=== PATIENT | male | born 1970 | race Caucasian/White ===

== ENCOUNTER 2016-02-16 22:42 | Emergency (ER) | payer MEDICAID, OTHER ==
[~2016-02-16] VITALS: Ht 172.7 cm; Wt 75.5 kg
[~2016-02-16 22:42] MED LIST: ASP81 PO; FIORICET PO; GEMF600T PO; LANT3I SC; NOVO3I SC
[2016-02-16 22:45] VITALS: Ht 172.7 cm; Wt 75.5 kg
[2016-02-17] MEDS ORDERED: BACTDS PO (00:59)
[2016-02-17] MEDS ORDERED: CEPH-443 PO (00:59)
[2016-02-17] MEDS ORDERED: DIPHTH/TET/ACEL PERTUSS (ADULT) 0.5 ML VIAL IM* ONE (01:00)
--- NOTE | 2016-02-17 01:17 | ERD ---
ER Documentation Chief Complaint Date/Time DATE: 02/17/16 TIME: 01:14 Chief Complaint left index finger laceration HPI Patient is a 45-year-old male who presents with superficial laceration to the left index finger that he sustained today with a knife. He has mild to moderate pain and also admits to mild numbness and tingling. He states it initially bled a lot but then he applied pressure to it and there is no longer bleeding. He denies any loss of range of motion. Denies possibility of retained foreign body. He is unsure of his last tetanus vaccination. ROS All systems reviewed and are negative except as per history of present illness. Medications Home Meds Active Scripts Cephalexin* (Keflex*) 500 Mg Capsule, 500 MG PO QID for 7 Days, CAP Prov:ZARIA FARR PA-C 02/17/16 Sulfamethoxazole-Trimethoprim* (Bactrim* DS) 800-160 Mg Tab, 1 TAB PO BID for 7 Days, TAB Prov:ZARIA FARR PA-C 02/17/16 Insulin Aspart* (Novolog Insulin Pen*) 100 Unit/Ml Soln, 0 UNIT SC WITH MEALS BEDTIME for 30 Days Prov:ALISE HUTCHINS 06/22/15 Insulin Glargine* (Lantus*) 100 Unit/Ml Soln, 22 UNIT SC HS for 30 Days Prov:ALISE HUTCHINS 06/22/15 Gemfibrozil* (Lopid*) 600 Mg Tab, 600 MG PO BID for 30 Days, TAB Prov:ALISE HUTCHINS 06/22/15 Acetamin/Butalbital/Caffeine* (Fioricet*) 1 Tab Tab, 2 TAB PO Q4H Y for PAIN, # 20 TAB Prov:ALISE HUTCHINS 06/22/15 Aspirin (Aspirin) 81 Mg Chew, 81 MG PO DAILY for 30 Days, TAB Prov:ALISE HUTCHINS 06/22/15 Allergies Allergies: Coded Allergies: No Known Allergy (Unverified , 06/20/15) PMhx/Soc History of Surgery: No Anesthesia Reaction: No Hx Neurological Disorder: No Hx Respiratory Disorders: No Hx Cardiac Disorders: No Hx Psychiatric Problems: No Hx Miscellaneous Medical Probl: No Hx Alcohol Use: No Hx Substance Use: No Hx Tobacco Use: No Smoking Status: Never smoker FmHx Family History: diabetes Physical Exam Vitals Vital Signs Date Time Temp Pulse Resp B/P Pulse Ox O2 Delivery O2 Flow Rate FiO2 02/16/16 22:45 98.9 90 20 144/92 100 Physical Exam General: well developed, well nourished, alert, nontoxic, no distress Head: normocephalic, atraumatic Respiratory: Clear to auscaultation bilaterally, speaks in full sentences, no use of accesory muscles or labored breathing, no rales, ronchi, or wheezing Cardiovascular: RRR, No murmurs Extremities: moving all extremities normally, normal gait, no edema Skin: Left index finger between the DIP and the PIP joint on the pad surface there is a very superficial less than 1 cm non-gaping laceration, no active bleeding, full range of motion against resistance at each interphalangeal joint , sensation to light touch intact throughout, capillary refill less than 2 seconds, no bony abnormalities. Results 24 hrs Current Medications Medications (Trade) Dose Ordered Sig/Kieran Route PRN Reason Start Time Stop Time Status Last Admin Dose Admin Diphtheria/ Tetanus/Acell Pertussis (Adacel) 0.5 ml ONCE ONCE IM* 02/17/16 01:00 02/17/16 01:01 DC Procedures/MDM 45-year-old male presents very small superficial laceration to his finger. He is neurovascularly intact. He was given a tetanus vaccination. There is no indication for suturing will repair at this time however laceration was irrigated with copious amounts of normal saline and was appropriately dressed and bandaged. He was discharged with Bactrim and Keflex. Recommended this patient follow up with her primary care doctor within 48 hours or return to the emergency room for any worsening of symptoms. However this time I do believe there is suitable for outpatient management. I answered all their questions and they agreed with the plan and were discharged home. Departure Diagnosis: Primary Impression: Finger laceration Condition: Stable Patient Instructions: Laceration, All Additional Instructions: Llame al doctor RADHA y oscar dahiana SO PARA DENTRO DE 1-2 GRAVES.Dgale a la secretaria que nosotros le instruimos hacer esta so.Avise o llame si charles condicin se empeora antes de la so. Regresa aqui si peor o no mejor. ZARIA FARR PA-C Feb 17, 2016 01:17
[2016-02-17 01:44] VITALS: BP 140/88; PULSE 70; RESP 18; TEMP 98.3
== END 2016-02-17 01:50 | disposition home or self-care (01) ==
LOC: FTE 22:42
DX: S61.211A Laceration without foreign body of left index finger without damage to nail, initial encounter (principal); W26.0XXA Contact with knife, initial encounter; Y92.9 Unspecified place or not applicable; Z79.4 Long term (current) use of insulin; Z79.82 Long term (current) use of aspirin; Z23 Encounter for immunization
CPT/HCPCS: 90471; 90715; Z7502

== ENCOUNTER 2016-07-23 08:32 | Emergency (ER) | payer OTHER ==
[~2016-07-23] VITALS: Ht 170.2 cm; Wt 81.0 kg
[~2016-07-23 08:32] MED LIST changes: -ASP81 PO; +ASPI81TA3 PO; +BACTDS PO; +CEPH-443 PO
[2016-07-23 08:42] VITALS: Ht 170.2 cm; Wt 81.0 kg
[2016-07-23] MEDS ORDERED: DIPHTH/TET/ACEL PERTUSS (ADULT) 0.5 ML VIAL IM* ONE (09:00)
[2016-07-23] MEDS ORDERED: CEPHALEXIN 500 MG CAP PO STA (09:18)
[2016-07-23] MEDS ORDERED: TRIMETHOPRIM/SULFAMETHOX (DS) TAB PO STA (09:18)
[2016-07-23] MEDS ORDERED: CEPH-443 PO (09:27)
[2016-07-23] MEDS ORDERED: SULF1TAB31 PO (09:27)
--- NOTE | 2016-07-23 10:27 | ERD ---
ER Documentation Chief Complaint Date/Time DATE: 07/23/16 TIME: 10:19 Chief Complaint pt bib self with c/o left index finger lac last night at 1700 HPI This is a 46-year-old male presenting to the emergency department complaining of a laceration to the volar aspect of his left index finger that occurred yesterday at 4 PM from a saw injury. Patient states the pain is moderate in severity. He denies any restricted range of motion. He does not remember his last tetanus shot ROS All systems reviewed and are negative except as per history of present illness. Medications Home Meds Active Scripts Sulfamethoxazole/Trimethoprim* (Bactrim Ds* Tablet) 1 Each Tablet, 1 TAB PO BID , #14 TAB Prov:CHELLY NOVAK PA-C 07/23/16 Cephalexin* (Keflex*) 500 Mg Capsule, 500 MG PO QID for 7 Days, CAP Prov:CHELLY NOVAK PA-C 07/23/16 Cephalexin* (Keflex*) 500 Mg Capsule, 500 MG PO QID for 7 Days, CAP Prov:ZARIA FARR PA-C 02/17/16 Sulfamethoxazole-Trimethoprim* (Bactrim* DS) 800-160 Mg Tab, 1 TAB PO BID for 7 Days, TAB Prov:ZARIA FARR PA-C 02/17/16 Insulin Aspart* (Novolog Insulin Pen*) 100 Unit/Ml Soln, 0 UNIT SC WITH MEALS BEDTIME for 30 Days Prov:ALISE HUTCHINS 06/22/15 Insulin Glargine* (Lantus*) 100 Unit/Ml Soln, 22 UNIT SC HS for 30 Days Prov:ALISE HUTCHINS 06/22/15 Gemfibrozil* (Lopid*) 600 Mg Tab, 600 MG PO BID for 30 Days, TAB Prov:ALISE HUTCHINS 06/22/15 Acetamin/Butalbital/Caffeine* (Fioricet*) 1 Tab Tab, 2 TAB PO Q4H Y for PAIN, # 20 TAB Prov:ALISE HUTCHINS 06/22/15 Aspirin (Aspirin) 81 Mg Chew, 81 MG PO DAILY for 30 Days, TAB Prov:ALISE HUTCHINS 06/22/15 Allergies Allergies: Coded Allergies: No Known Allergy (Unverified , 06/20/15) PMhx/Soc Medical and Surgical Hx: pt denies Medical Hx, pt denies Surgical Hx History of Surgery: No Anesthesia Reaction: No Hx Neurological Disorder: No Hx Respiratory Disorders: No Hx Cardiac Disorders: No Hx Psychiatric Problems: No Hx Miscellaneous Medical Probl: No Hx Alcohol Use: No Hx Substance Use: No Hx Tobacco Use: No Smoking Status: Never smoker Physical Exam Vitals Vital Signs Date Time Temp Pulse Resp B/P Pulse Ox O2 Delivery O2 Flow Rate FiO2 07/23/16 08:42 97.9 80 16 151/88 98 Physical Exam General: WD/WN, in no apparent distress, non-toxic appearing HENT: NC/AT Eyes: Conjunctiva normal Neck: Supple Pulm: Normal labored breathing CV: Good capillary refill GI: Non-distended, no guarding Back: No masses Ext: No clubbing, cyanosis, or edema Neuro: Moves on all fours, no neuro deficits, sensation intact Skin: 2 cm superficial laceration on the left index with maceration to the flap Psych: Normal mood Results 24 hrs Laboratory Tests Test 07/23/16 09:56 Bedside Glucose 298mg/dL Current Medications Medications (Trade) Dose Ordered Sig/Kieran Route PRN Reason Start Time Stop Time Status Last Admin Dose Admin Diphtheria/ Tetanus/Acell Pertussis (Adacel) 0.5 ml ONCE ONCE IM* 07/23/16 09:00 07/23/16 09:01 DC 07/23/16 09:09 Cephalexin (Keflex) 500 mg ONCE STAT PO 07/23/16 09:18 07/23/16 09:20 DC 07/23/16 09:24 Trimethoprim/ Sulfamethoxazole (Bactrim (Ds)) 1 tab ONCE STAT PO 07/23/16 09:18 07/23/16 09:20 DC 07/23/16 09:24 Procedures/MDM This is a 46-year-old male presenting to the emergency department with a superficial laceration to the left index finger from a saw yesterday at at 4 PM , this is greater than 12 hour window, laceration should not sutured for the risk of infection. In the ED the laceration was cleansed with normal saline. Steri-Strips were applied. Patient was updated on tetanus shot. Patient was given Keflex and Bactrim in the ED for prophylaxis, prescription was given for him for outpatient. I have discussed with him to follow-up in 2 days for a wound check. Discussed return to the ER for any worsening symptoms. Patient is neurovascular intact and hematocele for discharge for home with strict precautions. He understands and agrees with this plan Departure Diagnosis: Primary Impression: Laceration Additional Impression: Skin avulsion Condition: Stable Patient Instructions: Laceration, Hand, Laceration, Old (Not Sutured), Skin Avulsion Referrals: MUNIRA MARTINEZ MD Additional Instructions: FOLLOW UP WITH YOUR PRIMARY CARE PHYSICIAN TOMORROW.Return to this facility if you are not improving as expected. Take all medicines as directed. Return to this facility if you are not improving as expected. Visite a moreno mdico bob para un EXAMEN.Regrese a estas instalaciones si no se mejora mitch esperbamos o mitch le dijimos. [place] toda la medicina [place] y mitch se le indic. Regrese a estas instalaciones si no se mejora mitch esperbamos o mitch le dijimos. WOUND CHECK:CONSULTE A MORENO MDICO EN 2 kaminski para alyssa MORENO HERIDA. Follow up in 2 days in your clinic for wound check. CHELLY NOVAK PA-C Jul 23, 2016 10:27
== END 2016-07-23 10:11 | disposition home or self-care (01) ==
LOC: FTE 08:32
DX: S61.211A Laceration without foreign body of left index finger without damage to nail, initial encounter (principal); S61.201A Unspecified open wound of left index finger without damage to nail, initial encounter; W27.0XXA Contact with workbench tool, initial encounter; Y92.9 Unspecified place or not applicable; Z23 Encounter for immunization; Z79.4 Long term (current) use of insulin; Z79.82 Long term (current) use of aspirin
CPT/HCPCS: 82962; 90715; Z7610; 90471